=== PATIENT | female | born 1955 | race Caucasian/White ===

== ENCOUNTER 2019-04-03 15:52 | Emergency (ER) | payer MEDICARE, OTHER ==
[~2019-04-03] VITALS: Ht 170.2 cm; Wt 54.3 kg
[2019-04-03 16:09] LABS: BASOPHILS % (AUTO) 1.1 % (0.0-2.0); EOSINOPHILS % (AUTO) 1.2 % (1.0-6.0); HEMATOCRIT 43.3 % (36-46); HEMOGLOBIN 14.4 g/dL (12.0-16.0); MEAN CORPUSCULAR HEMOGLOBIN 30.6 pg (26.0-34.0); MEAN CORPUSCULAR HGB CONC 33.4 G/dL (31.0-37.0); MEAN CORPUSCULAR VOLUME 92 fL (80-100); MONOCYTES # (AUTO) 0.7 K/uL (0.1-1.0); MONOCYTES % (AUTO) 8.3 % (2.0-9.0); NEUTROPHILS # (AUTO) 5.1 K/uL (1.8-7.7); NEUTROPHILS % (AUTO) 64.4 % (40.0-70.0); PLATELET COUNT (AUTO) 367 K/uL (150-450); RED BLOOD CELL COUNT(AUTO) 4.72 MIL/uL (4.00-5.20); RED CELL DISTRIBUTION WIDTH 12.9 % (11.5-14.5)
[2019-04-03] MEDS ORDERED: SODIUM CHLORIDE 0.9% 100 ML ONE (16:09)
[2019-04-03] MEDS ORDERED: IOVERSOL 350 MG/ML 100 ML VIAL ONE (16:09)
[2019-04-03 16:20] LABS: CALCIUM, TOTAL 9.7 mg/dL (8.8-10.5); CREATININE 0.97 mg/dL (0.60-1.30)
[2019-04-03 16:26] LABS: ALBUMIN 3.8 g/dL (3.4-5.0); BILIRUBIN,TOTAL 0.6 mg/dL (0.1-1.0); TOTAL PROTEIN, SERUM 6.9 g/dL (6.4-8.2)
[2019-04-03 16:29] LABS: PROTHROMBIN TIME 10.2 SEC (9.4-11.6)
[2019-04-03] MEDS ORDERED: INSLAN SQ ×2 (16:55)
[2019-04-03] MEDS ORDERED: LEVE500T53 PO (16:55)
[2019-04-03] MEDS ORDERED: INSU100V SQ (16:55)
[2019-04-03] MEDS ORDERED: ACETAMINOPHEN 325 MG TABLET PO PRN (17:45)
[2019-04-03] MEDS ORDERED: DEXTROSE 50%-WATER 25 GM/50 ML SYRINGE IVP PRN (17:45)
[2019-04-03] MEDS ORDERED: ASPIRIN 325 MG TABLET PO SCH (17:45)
[2019-04-03] MEDS ORDERED: ONDANSETRON HCL 4 MG/2 ML VIAL IVP PRN (17:45)
[2019-04-03] MEDS ORDERED: INSULIN LISPRO 100 UNITS/ML SQ PRN (17:45)
[2019-04-03] MEDS ORDERED: 0.9% SODIUM CHLORIDE 10 ML SYRINGE IVP PRN (17:45)
[2019-04-03] MEDS ORDERED: LevETIRAcetam 1,000 MG in DEXTROSE 5%-WATER 100 ML IV SCH (18:00)
[2019-04-03 20:31] LABS: CHOL/HDL RATIO 2.8 (3.9-5.7)
[2019-04-03 20:57] LABS: APPEARANCE,URINE CLOUDY (CLEAR); BILIRUBIN,URINE NEGATIVE (NEGATIVE); GLUCOSE, URINE (UA) 500 mg/dL (NEGATIVE); KETONES,URINE NEGATIVE (NEGATIVE); LEUKOCYTE ESTERASE ,URINE SMALL (NEGATIVE); NITRATE,URINE POSITIVE (NEGATIVE); OCCULT BLOOD,URINE NEGATIVE (NEGATIVE); PROTEIN,URINE NEGATIVE (NEGATIVE); UROBILINOGEN,URINE 0.2 mg/dL (<=1.0)
[2019-04-03] MEDS ORDERED: HEPARIN SODIUM,PORCINE 5,000 UNITS/ML VIAL SQ SCH (21:00)
[2019-04-03 21:06] LABS: BACTERIA,URINE Many /HPF (None Seen)
[2019-04-03 21:07] LABS: RBC,URINE None Seen /HPF (0-2)
[2019-04-03 21:08] LABS: AMORPHOUS SEDIMENT,UR Moderate /LPF (None Seen); SQUAMOUS EPITHELIAL CELL,UR Few /LPF (None Seen)
[2019-04-03 23:37] VITALS: BP 111/64
[2019-04-03 23:47] LABS: AMPHET/METH SCREEN,URINE NEGATIVE (NEGATIVE); BARBITURATE SCREEN, URINE NEGATIVE (NEGATIVE); BENZODIAZEPINES SCREEN,URINE NEGATIVE (NEGATIVE); CANNABINOID SCREEN,URINE NEGATIVE (NEGATIVE); COCAINE SCREEN,URINE NEGATIVE (NEGATIVE); METHADONE SCREEN, URINE NEGATIVE (NEGATIVE); OPIATE SCREEN,URINE NEGATIVE (NEGATIVE)
[2019-04-03 23:51] LABS: PHENCYCLIDINE SCREEN,URINE NEGATIVE (NEGATIVE)
[2019-04-04] MEDS ORDERED: ATORVASTATIN CALCIUM 20 MG TABLET PO SCH (09:00)
== END 2019-04-03 23:48 | disposition short-term general hospital (02) ==
LOC: EMS 15:52
DX: I63.9 Cerebral infarction, unspecified (principal); D32.9 Benign neoplasm of meninges, unspecified
CPT/HCPCS: 36415; 70450; 70496; 70551; 71045; 80053; 80061; 80307; 81001; 84484; 85025; 85610; 85730; 86850; 86900; 86901; 87086; 93005; 96365; 99291; 99292; J0712; J7050; J7060; Q9967; 51702